=== PATIENT | female | born 1975 | race Caucasian/White ===

== ENCOUNTER 2018-11-24 16:41 | Emergency (ER) | payer BC ==
--- NOTE | 2018-11-24 16:57 | ER Report ---
History and Physical Time Seen By MD: 16:57 HPI/ROS CHIEF COMPLAINT: Chest pain HISTORY OF PRESENT ILLNESS: 43-year-old female patient presents to emergency room with complaint of chest pain. Patient states that she has been having pain for the last 2 days. She states the pain seems to worse with eating, and taking deep breath. Patient states that she has not taken any medication for this. She states the pain started when she was in [place]. She states she traveled up her Friday, she had felt sick to her stomach Friday night, however she did feel better so the morning with chest pain persisted. She states she is not had any nausea, vomiting or diarrhea. She states she has felt short of breath and feels that the pain worsens or she takes a deep breath. She states that really seemed to develop on Friday. Patient denies any fevers, chills, cough. REVIEW OF SYSTEMS: Respiratory: As noted above. Cardiovascular: As noted above Gastrointestinal: No vomiting, no abdominal pain. Musculoskeletal: No back pain. Home Meds Active Scripts Ketorolac Tromethamine (KETOROLAC TROMETHAMINE) 10 Mg Tab, 10 MG PO Q6H, #20 TAB Prov:MAGNOLIA FIORE [employer]IST 11/24/18 Past Medical/Surgical History Patient denies any pertinent medical history. Patient has a surgical history of back surgery. Reviewed Nurses Notes: Yes Constitutional Vital Sign - Last 24 Hours 11/24/18 11/24/18 11/24/18 11/24/18 17:00 17:00 18:00 18:30 Temp 98.5 Pulse 84 91 77 83 Resp 18 24 14 24 B/P (MAP) 137/74 137/74 (95) 124/85 (98) 132/96 (108) Pulse Ox 93 94 94 90 O2 Delivery Room Air 11/24/18 11/24/18 11/24/18 11/24/18 19:00 19:05 19:20 19:35 Pulse 80 77 76 ??? Resp 16 24 13 26 Pulse Ox 96 95 95 92 11/24/18 19:50 Pulse ??? Physical Exam General Appearance: The patient is alert, has no immediate need for airway protection and no current signs of toxicity. Respiratory: Chest is non tender, lungs are clear to auscultation. Cardiac: regular rate and rhythm Gastrointestinal: Abdomen is soft and non tender, no masses, bowel sounds normal. Musculoskeletal: Neck: Neck is supple and non tender. Extremities have full range of motion and are non tender. Skin: No rashes or lesions. DIFFERENTIAL DIAGNOSIS: After history and physical exam differential diagnosis was considered for chest pain including but not limited to myocardial ischemia, pericarditis pulmonary embolus, chest wall pain, pleural inflammation and pulmonary infectious causes. Medical Decision Making Data Points Result Diagram: 11/24/18 1711 11/24/18 1711 Laboratory Hematology Test 11/24/18 17:11 Red Blood Count 5.02 M/uL (4.17-5.56) Mean Corpuscular Volume 87.2 fL (80.0-96.0) Mean Corpuscular Hemoglobin 28.8 pg (26.0-33.0) Mean Corpuscular Hemoglobin Concent 33.0 g/dL (32.0-36.0) Red Cell Distribution Width 14.2 % (11.5-14.5) Mean Platelet Volume 7.8 fL (7.2-11.1) Neutrophils (%) (Auto) 63.5 % (39.4-72.5) Lymphocytes (%) (Auto) 27.5 % (17.6-49.6) Monocytes (%) (Auto) 7.4 % (4.1-12.4) Eosinophils (%) (Auto) 1.0 % (0.4-6.7) Basophils (%) (Auto) 0.6 % (0.3-1.4) Nucleated RBC Relative Count (auto) 0.0 /100WBC Neutrophils # (Auto) 4.6 K/uL (2.0-7.4) Lymphocytes # (Auto) 2.0 K/uL (1.3-3.6) Monocytes # (Auto) 0.5 K/uL (0.3-1.0) Eosinophils # (Auto) 0.1 K/uL (0.0-0.5) Basophils # (Auto) 0.0 K/uL (0.0-0.1) Nucleated RBC Absolute Count (auto) 0.00 K/uL D-Dimer Quantitative (PE/DVT) 1.95 ug/ml (0-0.50) Sodium Level 139 mmol/L (137-145) Potassium Level 3.9 mmol/L (3.5-5.0) Chloride Level 104 mmol/L (98-107) Carbon Dioxide Level 26 mmol/L (22-31) Blood Urea Nitrogen 13 mg/dl (7-18) Creatinine 0.80 mg/dl (0.52-1.04) Glomerular Filtration Rate Calc > 60.0 Random Glucose 103 mg/dl (75-110) Calcium Level 9.4 mg/dl (8.4-10.2) Total Bilirubin 0.2 mg/dl (0.2-1.3) Aspartate Amino Transf (AST/SGOT) 22 U/L (0-35) Alanine Aminotransferase (ALT/SGPT) 16 U/L (0-56) Alkaline Phosphatase 70 U/L (0-126) Troponin I < 0.012 ng/ml B-Type Natriuretic Peptide 10 pg/ml (0-100) Total Protein 7.6 g/dl (6.3-8.2) Albumin 4.3 g/dl (3.5-5.0) Amylase Level 82 U/L (0-110) Lipase 192 U/L (23-300) Human Chorionic Gonadotropin, Qual Negative (NEGATIVE) Chemistry Test 11/24/18 17:11 White Blood Count 7.3 k/uL (4.5-11.0) Red Blood Count 5.02 M/uL (4.17-5.56) Hemoglobin 14.4 g/dL (12.0-16.0) Hematocrit 43.8 % (34.0-47.0) Mean Corpuscular Volume 87.2 fL (80.0-96.0) Mean Corpuscular Hemoglobin 28.8 pg (26.0-33.0) Mean Corpuscular Hemoglobin Concent 33.0 g/dL (32.0-36.0) Red Cell Distribution Width 14.2 % (11.5-14.5) Platelet Count 365 K/uL (150-450) Mean Platelet Volume 7.8 fL (7.2-11.1) Neutrophils (%) (Auto) 63.5 % (39.4-72.5) Lymphocytes (%) (Auto) 27.5 % (17.6-49.6) Monocytes (%) (Auto) 7.4 % (4.1-12.4) Eosinophils (%) (Auto) 1.0 % (0.4-6.7) Basophils (%) (Auto) 0.6 % (0.3-1.4) Nucleated RBC Relative Count (auto) 0.0 /100WBC Neutrophils # (Auto) 4.6 K/uL (2.0-7.4) Lymphocytes # (Auto) 2.0 K/uL (1.3-3.6) Monocytes # (Auto) 0.5 K/uL (0.3-1.0) Eosinophils # (Auto) 0.1 K/uL (0.0-0.5) Basophils # (Auto) 0.0 K/uL (0.0-0.1) Nucleated RBC Absolute Count (auto) 0.00 K/uL D-Dimer Quantitative (PE/DVT) 1.95 ug/ml (0-0.50) Glomerular Filtration Rate Calc > 60.0 Calcium Level 9.4 mg/dl (8.4-10.2) Total Bilirubin 0.2 mg/dl (0.2-1.3) Aspartate Amino Transf (AST/SGOT) 22 U/L (0-35) Alanine Aminotransferase (ALT/SGPT) 16 U/L (0-56) Alkaline Phosphatase 70 U/L (0-126) Troponin I < 0.012 ng/ml B-Type Natriuretic Peptide 10 pg/ml (0-100) Total Protein 7.6 g/dl (6.3-8.2) Albumin 4.3 g/dl (3.5-5.0) Amylase Level 82 U/L (0-110) Lipase 192 U/L (23-300) Human Chorionic Gonadotropin, Qual Negative (NEGATIVE) Coagulation Test 11/24/18 17:11 D-Dimer Quantitative (PE/DVT) 1.95 ug/ml EKG/Imaging EKG Interpretation 12 lead EKG: Rhythm: normal sinus rhythm [place]: normal QRS: normal ST segments: normal Imaging CT angiogram chest with contrast Indication: Chest pain. Elevated d-dimer. Comparison: None available. Technique: Axial CT images are obtained through the chest after administration of 75 mL Isovue 370 IV contrast. Reformatted coronal and sagittal images were reviewed as well as coronal MIP images. One of the following dose optimization techniques was utilized in the performance of this exam: automated exposure control; adjustment of the mA and/or kV according to the patient's size; or use of an iterative reconstruction technique. Specific details can be referenced in the facility's radiology CT exam operational policy. FINDINGS: No evidence of filling defect within the pulmonary vasculature to suggest pulmonary embolus. Heart is normal size without pericardial effusion. Aorta shows no aneurysm or dissection. Mediastinum and hilar regions show no enlarged lymph nodes or abnormal density. Lungs show no consolidation, pleural effusion, pneumothorax or focal intersti tial opacities. The posterior right upper lobe does show a pleural-based 5 mm nodule on image #20 of series 5. No other nodules. Airways are clear. Bony structures show no acute fractures or aggressive bony lesions. Chest wall shows no enlarged axillary lymph nodes or masses. Limited views of the upper abdomen are unremarkable. IMPRESSION: 1. No evidence of pulmonary embolus. 2. No acute cardiothoracic abnormality 3. 5 mm pleural-based right upper lobe nodule. This is too small characterize. Suggest follow-up per Fleischner guidelines described below. FLEISCHNER SOCIETY FOLLOW-UP GUIDELINES FOR NEWLY DETECTED INCIDENTAL NODULES IN PERSONS 35 YEARS OF AGE OR OLDER. *These recommendations do NOT apply to lung cancer screening, patients with immunosuppression or patients with a known primary malignancy. SOLITARY SOLID NODULE If nodule size is < 6 mm: * Low risk patient ? No routine follow-up. * High risk patient ? Optional CT at 12 months. If nodule size is 6-8 mm: * Low risk patient ? CT at 6-12 months, then consider CT at 18-24 months if no change. * High risk patient ? CT at 6-12 months, then CT at 18-24 months if no change. If nodule size is > 8 mm: * Low risk patient ? Consider CT at 3, 9 and 24 months (if no change), PET/CT, tissue sampling or a combination thereof. * High risk patient ? Consider CT at 3, 9 and 24 months (if no change), PET/CT, tissue sampling, or a combination thereof. LOW RISK PATIENT: Minimal or absent history of tobacco use and of other known risk factors. HIGH RISK PATIENT: Tobacco use, family history of lung cancer, upper pulmonary lobe location of nodule, presence of emphysema, pulmonary fibrosis, older age. Lucien H, Laurence DP, Mouna FLORES, et al. Guidelines for Management of Incidental Pulmonary Nodules Detected on CT Images: From the Fleischner Society 2017. Radiology. [facility] Report Dictated By: Tony Beard at 11/24/2018 7:04 PM Report E-Signed By: Tony Beard at 11/24/2018 7:14 PM CHEST PA LAT COMPARISONS: None. ADDITIONAL PERTINENT HISTORY: Respiratory distress and chest pain FINDINGS: Cardiomediastinal silhouette: Negative. Pulmonary vasculature: Negative. Lung lion: Negative. Pleural spaces: Negative. Osseous structures: Negative. Surrounding soft tissues: Negative. IMPRESSION: No evidence of acute cardiopulmonary disease. Report Dictated By: Mark Lovett MD at 11/24/2018 5:59 PM Report E-Signed By: Mark Lovett MD at 11/24/2018 5:59 PM ED Course/Re-evaluation ED Course Patient was admitted to an exam room, history and physical were obtained. Differential diagnoses were considered. On examination lungs are clear, heart is regular, abdomen is soft and nontender. A CBC, CMP, troponin, d-dimer, EKG, chest x-ray were done. Patient did have an elevated d-dimer, the remainder of the labs were unremarkable. Chest x-ray showed no acute cardiopulmonary processes. Due to the elevated d-dimer did go ahead and do a CT pulmonary angiogram. The results of the CT pulmonary angiogram were negative. I discussed findings with patient. I'm not sure what was causing her chest pain. He does not appear to be related to her heart or to her lungs. We will go ahead and discharge her home with this time. We'll have her follow-up with her primary care provider. I do not feel that is likely related to her gallbladder at this time. Patient states she's recently moved to [place] and does not have a primary care provider. I did give her and her a list of the primary care providers here in [facility]. Decision to Disposition Date: Nov 24, 2018 Decision to Disposition Time: 19:27 Depart Departure Latest Vital Signs Vital Signs Date Time Temp Pulse Resp B/P (MAP) Pulse Ox O2 Delivery O2 Flow Rate FiO2 11/24/18 19:50 ??? 11/24/18 19:35 26 92 11/24/18 18:30 132/96 (108) 11/24/18 17:00 98.5 Room Air Impression: Primary Impression: Chest pain Condition: Improved Disposition: HOME OR SELF-CARE New Scripts Ketorolac Tromethamine (KETOROLAC TROMETHAMINE) 10 Mg Tab 10 MG PO Q6H, #20 TAB Prov: MAGNOLIA FIORE 11/24/18 Patient Instructions: Chest Pain (ED) Additional Instructions: Increase fluid intake. Get plenty of rest. Limit activity by pain. Follow up with your primary care provider on or Friday if there is no improvement. Return to the ER if condition worsens. Take the medication as prescribed. Problem Qualifiers Primary Impression: Chest pain Chest pain type: other chest pain Qualified Codes: R07.89 - Other chest pain MAGNOLIA FIORE Nov 24, 2018 16:57
[2018-11-24 17:31] LABS: PLATELET COUNT, AUTOMATED 365 K/uL (150-450)
--- NOTE | 2018-11-24 17:54 | EKG ---
FACILITY: [facility] PATIENT NAME: JOSUE URIOSTEGUI : [id number] MR: [id number] V: [id number] EXAM DATE: ORDERING PHYSICIAN: MAGNOLIA FIORE TECHNOLOGIST: SANDHYA Figueredo Reason : CARDIAC Blood Pressure : / mmHG Vent. Rate : 087 BPM Atrial Rate : 087 BPM P-R Int : 170 ms QRS Dur : 094 ms QT Int : 394 ms P-R-T Axes : 050 -11 012 degrees QTc Int : 474 ms Normal sinus rhythm Normal ECG No previous ECGs available Confirmed by IGOR MURPHY ([id number]) on 11/25/2018 6:34:00 AM Referred By: MACARENA Confirmed By:IGOR MURPHY
[2018-11-24] MEDS ORDERED: ASPIRIN 81 MG CHEW PO ONE (17:55)
--- NOTE | 2018-11-24 18:03 | RADIOLOGY IMAGING REPORT ---
FACILITY: [facility] PATIENT NAME: Estela Guzman : 1975 MR: [id number] V: [id number] EXAM DATE: ORDERING PHYSICIAN: MAGNOLIA FIORE TECHNOLOGIST: [place] [facility] [place] Guz[place] : 1975 Visit/Account:[id number] Date of Sevice: 11/24/2018 CHEST PA LAT COMPARISONS: None. ADDITIONAL PERTINENT HISTORY: Respiratory distress and chest pain FINDINGS: Cardiomediastinal silhouette: Negative. Pulmonary vasculature: Negative. Lung lion: Negative. Pleural spaces: Negative. Osseous structures: Negative. Surrounding soft tissues: Negative. IMPRESSION: No evidence of acute cardiopulmonary disease. Report Dictated By: Mark Lovett MD at 11/24/2018 5:59 PM Report E-Signed By: Mark Lovett MD at 11/24/2018 5:59 PM WSN:[id number]
[2018-11-24] MEDS ORDERED: IOPAMIDOL 76% 150 ML INFUS BTL 150 ML ONE (18:16)
[2018-11-24] MEDS ORDERED: NS(*) 0.9% 50 ML BAG 50 ML ONE (18:16)
[2018-11-24 18:30] VITALS: BP 132/96
--- NOTE | 2018-11-24 19:18 | RADIOLOGY IMAGING REPORT ---
FACILITY: [facility] PATIENT NAME: Estela Guzman : 1975 MR: [id number] V: [id number] EXAM DATE: ORDERING PHYSICIAN: MAGNOLIA FIORE TECHNOLOGIST: Location: [facility] Patient: Estela Guzman : 1975 Visit/Account:[id number] Date of Sevice: 11/24/2018 CT angiogram chest with contrast Indication: Chest pain. Elevated d-dimer. Comparison: None available. Technique: Axial CT images are obtained through the chest after administration of 75 mL Isovue 370 IV contrast. Reformatted coronal and sagittal images were reviewed as well as coronal MIP images. One of the following dose optimization techniques was utilized in the performance of this exam: auto mated exposure control; adjustment of the mA and/or kV according to the patient's size; or use of an iterative reconstruction technique. Specific details can be referenced in the facility's radiology C T exam operational policy. FINDINGS: No evidence of filling defect within the pulmonary vasculature to suggest pulmonary embolus. Heart is normal size without pericardial effusion. Aorta shows no aneurysm or dissection. Mediastinum and hilar regions show no enlarged lymph nodes or abnormal density. Lungs show no consolidation, pleural effusion, pneumothorax or focal interstitial opacities. The post erior right upper lobe does show a pleural-based 5 mm nodule on image #20 of series 5. No other nodul es. Airways are clear. Bony structures show no acute fractures or aggressive bony lesions. Chest wall shows no enlarged axil nancy lymph nodes or masses. Limited views of the upper abdomen are unremarkable. IMPRESSION: 1. No evidence of pulmonary embolus. 2. No acute cardiothoracic abnormality 3. 5 mm pleural-based right upper lobe nodule. This is too small characterize. Suggest follow-up per Fleischner guidelines described below. FLEISCHNER SOCIETY FOLLOW-UP GUIDELINES FOR NEWLY DETECTED INCIDENTAL NODULES IN PERSONS 35 YEARS OF AGE OR OLDER. *These recommendations do NOT apply to lung cancer screening, patients with immunosuppression or germaine ents with a known primary malignancy. SOLITARY SOLID NODULE If nodule size is < 6 mm: * Low risk patient ? No routine follow-up. * High risk patient ? Optional CT at 12 months. If nodule size is 6-8 mm: * Low risk patient ? CT at 6-12 months, then consider CT at 18-24 months if no change. * High risk patient ? CT at 6-12 months, then CT at 18-24 months if no change. If nodule size is > 8 mm: * Low risk patient ? Consider CT at 3, 9 and 24 months (if no change), PET/CT, tissue sampling or a combination thereof. * High risk patient ? Consider CT at 3, 9 and 24 months (if no change), PET/CT, tissue sampling, or a combination thereof. LOW RISK PATIENT: Minimal or absent history of tobacco use and of other known risk factors. HIGH RISK PATIENT: Tobacco use, family history of lung cancer, upper pulmonary lobe location of nodul e, presence of emphysema, pulmonary fibrosis, older age. Lucien H, Laurence DP, Mouna JM, et al. Guidelines for Management of Incidental Pulmonary Nodules Dete cted on CT Images: From the Fleischner Society 2017. Radiology. [facility] Report Dictated By: Tony Beard at 11/24/2018 7:04 PM Report E-Signed By: Tony Beard at 11/24/2018 7:14 PM WSN:[id number]
[2018-11-24] MEDS ORDERED: KET10 PO (19:29)
== END 2018-11-24 19:50 | disposition home or self-care (01) ==
LOC: ER 16:58
DX: R07.89 Other chest pain (principal)
CPT/HCPCS: 71046; 71275; 82150; 83690; 83880; 84484; 84703; 85025; 85379; 93005; 99284; J7050; Q9967; 82040; 82247; 82310; 82374; 82435; 82565; 82947; 84075; 84132; 84155; 84295; 84450; 84460; 84520

== ENCOUNTER → 2018-12-29 | Outpatient (CLI) | payer BC ==
[~2018-12-29] MED LIST: BARIUM SULFATE 176 GM BTL PO ONE; BARIUM SULFATE 340 GM POWD ONE; KET10 PO
--- NOTE | 2018-12-29 12:40 | RADIOLOGY IMAGING REPORT ---
FACILITY: [facility] PATIENT NAME: Estela Guzman : 1975 MR: [id number] V: [id number] EXAM DATE: ORDERING PHYSICIAN: NANCY REED TECHNOLOGIST: Location: [facility] Patient: Estela Guzman : 1975 Visit/Account:[id number] Date of Sevice: 12/29/2018 EXAMINATION: Abdominal ultrasound complete HISTORY: Abdominal pain. COMPARISON: CTA chest November 24, 2018 FINDINGS: Gallbladder: No stones, wall thickening, pericholecystic fluid or sonographic Dawson sign. Liver: Negative. Common duct: Normal measuring 2.5 mm. Pancreas: Partially distorted by bowel gas although the visualized portion appeared unremarkable Spleen: Normal in size and echogenicity measuring 8.6 cm in length. Kidneys: Normal in size and echogenicity, the right measures 11.3 cm in length, and the left 12 cm. No hydronephrosis. Upper abdominal aorta and IVC: Negative. Ascites: None. IMPRESSION: Normal abdominal ultrasound. Report Dictated By: Lizbeth Elias MD at 12/29/2018 12:30 PM Report E-Signed By: Lizbeth Elias MD at 12/29/2018 12:32 PM WSN:[email or web address]
--- NOTE | 2018-12-29 17:54 | RADIOLOGY IMAGING REPORT ---
[place] [facility] [place] NAME: Estela Guzman : 1975 MR: [id number] V: [id number] EXAM DATE: ORDERING PHYSICIAN: NANCY REED TECHNOLOGIST: Location: [facility] [place] Patient: Estela Guzman : 1975 Visit/Account:[id number] Date of Sevice: 12/29/2018 Exam type: XR UPPER GI SERIES W/O KUB History: Left upper abdomen pain and GERD Comparison: None. Findings: Double contrast upper GI series was performed with thick and thin barium and air contrast. A small h iatal hernia is present. Moderate gastroesophageal reflux was observed. No significant narrowing wa s identified within the esophagus. No mucosal erosions identified. The stomach and duodenum appeare d unremarkable. The dose area product was 609.70 micro-Flower per meter squared IMPRESSION: 1. Small hiatal hernia with moderate gastroesophageal reflux although otherwise unremarkable upper G I series Report Dictated By: Lizbeth Elias MD at 12/29/2018 5:47 PM Report E-Signed By: Lizebth Elias MD at 12/29/2018 5:49 PM WSN:[email or web address]
== END ==
LOC: RAD 01:02
PROVIDERS: ATTEND Family Medicine
DX: K44.9 Diaphragmatic hernia without obstruction or gangrene (principal); K21.9 Gastro-esophageal reflux disease without esophagitis
CPT/HCPCS: 74240; 76700